=== PATIENT | female | born 1995 | race Caucasian/White ===

== ENCOUNTER 2016-12-16 19:45 | Emergency (ER) | payer OTHER ==
[~2016-12-16] VITALS: Ht 160 cm; Wt 115.7 kg
[2016-12-16 19:45] VITALS: Ht 160 cm; Wt 115.7 kg
[~2016-12-16 19:45] MED LIST: ASPI1TAB72 PO; CANA300T PO; CEPH500C2 PO; INSU100I3 SQ; INSU300I SQ; RIZA10TA24 PO
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
--- OUTSIDE RECORDS SUMMARY | 2016-12-16 19:49 | XMS REPORT | Continuity of Care Document ---
Author Author [facility] Organization [facility] Address Unknown Phone Unavailable Allergies Medications Problems Procedures Results Encounters ACCT No. Visit Date/Time Discharge Status Pt. Type Provider Facility Loc./Unit Complaint [id number] 09/07/2012 13:08:00 2012 16:48:00 DIS Emergency Bertrand HIGH, [facility] W.EDS [id number] 05/21/2012 09:32:00 2011 09:32:00 DIS Outpatient Andrea HIGH, [facility] W.KENRICK
--- OUTSIDE RECORDS SUMMARY | 2016-12-16 19:49 | XMS REPORT | Continuity of Care Document ---
Author Author [facility] Organization [facility] Address Unknown Phone Unavailable Care Team Providers Care Independent Marketing Consultant Name Role Phone GAVIN CASTELLANOS MD Primary Care Physician [phone] Insurance Providers Payer Name Policy Number Subscriber Name Relationship [employer] [id number] Pedro Grimm 19 Child Advance Directives Directive Response Recorded Date/Time Advanced Directives Type None 11/30/14 9:05pm Problems Medical Problems Problem Onset Date Status Heavy menstrual bleeding Unknown Active Diabetes type 2, uncontrolled Unknown Active Heavy menstrual bleeding Unknown Active Nausea & vomiting Unknown Active Diabetes type 2, uncontrolled Unknown Active Nausea & vomiting Unknown Active Cephalgia Unknown Active Hyperglycemia Unknown Active Medications Medication Dose Route Sig Days/Qty Instructions Order Date Discontinued Date Status [None] 05/30/09 03/04/10 Discontinued Cefuroxime Axetil TWICE A DAY 05/30/09 03/04/10 Discontinued Rizatriptan Benzoate NEEDED 03/04/10 09/16/11 Discontinued Liraglutide 1.2 Mg SQ DAILY 01/03/13 12/13/13 Discontinued Insulin Aspart 6 Unit SQ THREE TIMES DAILY WITH MEALS 11/30/14 Active Insulin Glargine,Hum.rec.anlog 20 Unit SQ BEDTIME 11/30/14 Active Hydrocodone/Acetaminophen 1 Tab PO Every 6 Hours PRN PAIN 11/30/14 Active Ibuprofen 1 Tab PO Every 6 Hours PRN PAIN 11/30/14 Active Rizatriptan Benzoate 10 Mg PO NEEDED 11/30/14 Active Social History Social History Problem Response Recorded Date/Time Hx Substance Use No 11/30/2014 9:05pm Tobacco Usage none 07/16/2014 5:38am Query Response Start Date Stop Date Smoking Status Never smoker Hospital Discharge Instructions No hospital discharge instructions. Plan of Care No plan of care. Functional Status Query Response Date Recorded Physical Hygiene Self November 30, 2014 9:05pm Disabilities Visual November 30, 2014 9:05pm Devices Used Glasses November 30, 2014 9:05pm Dressing Self November 30, 2014 9:05pm Ambulation Self November 30, 2014 9:05pm Diet Self November 30, 2014 9:05pm Mental Status Alert Oriented November 30, 2014 11:31pm Disabilities Visual November 30, 2014 9:05pm Devices Used Glasses November 30, 2014 9:05pm Physical Hygiene Self November 30, 2014 9:05pm Dressing Self November 30, 2014 9:05pm Ambulation Self November 30, 2014 9:05pm Diet Self November 30, 2014 9:05pm Allergies, Adverse Reactions, Alerts Allergen Type Severity Reaction Status Last Updated No Known Drug Allergies Allergy Unknown Active 07/16/14 Immunizations Name Given Type Hx Influenza Vaccination Y may 2014 Historical Hx Influenza Vaccination Y may 2014 Historical Vital Signs Acute Vital Signs Vital Response Date/Time Temperature (Fahrenheit) 96.7 deg F (96.8 - 99.1) Temperature (Calculated Celsius) 35.16221 degrees C (36.0 - 37.3) Pulse Rate (adult) 88 bpm (60 - 100) Respiratory Rate 16 breaths/min (10 - 20) O2 Sat by Pulse Oximetry 97 % (90 - 100) Blood Pressure 134/64 mm Hg Height 5 ft 3 in Weight 258 lb Body Mass Index 45.0 kg/m^2 Results Test Source Date Result Interp. Ref. Range Comments Acetone Level November 30, 2014 9:55pm Negative - Alanine Aminotransferase (ALT/SGPT) November 30, 2014 9:55pm 30 U/L N 9-52 Albumin November 30, 2014 9:55pm 4.4 G/DL N 3.5-5.0 Albumin/Globulin Ratio November 30, 2014 9:55pm 1.2 RATIO N 1.1-2.2 Alkaline Phosphatase November 30, 2014 9:55pm 98 U/L N 38-126 Amylase Level July 16, 2014 5:40am 52 U/L N 30-110 Anion Gap November 30, 2014 9:55pm 16 MEQ/L H 5-15 Aspartate Amino Transf (AST/SGOT) November 30, 2014 9:55pm 19 U/L N 14-36 BUN/Creatinine Ratio November 30, 2014 9:55pm 24 RATIO N 6-26 Band Neutrophils # July 16, 2014 5:40am 4.1 T/MM3 - Band Neutrophils % July 16, 2014 5:40am 29.0 % H 0-6 Basophils # (Auto) December 13, 2013 10:45pm 0.0 T/MM3 N 0-0.2 Basophils (%) (Auto) December 13, 2013 10:45pm 0.3 % N 0-2 Blood Urea Nitrogen November 30, 2014 9:55pm 12.0 MG/DL N 7-17 Calcium Level November 30, 2014 9:55pm 9.8 MG/DL N 8.4-10.2 Calculated Osmolality November 30, 2014 9:55pm 281 MOSM/KG H 261-280 Carbon Dioxide Level November 30, 2014 9:55pm 27 MEQ/L N 22-30 Chemistry Specimen Hemolysis November 30, 2014 9:55pm < 15 0-25 0-25: No Hemolysis.26-70: Slight Hemolysis - can falsely elevate K and Urine Protein. 71-285: Moderate Hemolysis - can falsely elevate K, Troponin I, CA 19-9, PTH, CSF GLucose, and Urine Protein, and can falsely decrease Phenytoin. 286-999: Gross Hemolysis - can falsely elevate K, Troponin I, CA 19-9, PTH, CSF Glucose, and Urine Protine, and can falsely decrease Phenytoin. Recommend specimen recollection. Chloride Level November 30, 2014 9:55pm 98 MEQ/L N 98-107 Creatinine November 30, 2014 9:55pm 0.5 MG/DL L 0.7-1.2 Eosinophils # (Auto) December 13, 2013 10:45pm 0.1 T/MM3 N 0-0.5 Eosinophils (%) (Auto) December 13, 2013 10:45pm 1.0 % N 0-4 Globulin November 30, 2014 9:55pm 3.8 G/DL H 2.4-3.6 Glomerular Filtration Rate Calc November 30, 2014 9:55pm 159 - Glucometer November 30, 2014 9:28pm 287 mg/dL H 65-110 Glucose Level November 30, 2014 9:55pm 281 MG/DL H 65-110 Hematocrit November 30, 2014 9:55pm 43.2 % N 36-46 Hemoglobin November 30, 2014 9:55pm 14.7 GM/DL N 12-16 Icterus Index November 30, 2014 9:55pm < 2 0-7 Immature Granulocyte # (Auto) December 13, 2013 10:45pm 0.02 T/MM3 N 0.00- 0.03 Immature Granulocyte % (Auto) December 13, 2013 10:45pm 0.2 % N 0.0-0.5 Lab Scanned Report October 16, 2011 2:14pm REFERENCE LAB [id number] - Lipase July 16, 2014 5:40am 84 U/L N 23-300 Lymphocytes # (Auto) December 13, 2013 10:45pm 3.5 T/MM3 N 1-4.8 Lymphocytes # (Manual) November 30, 2014 9:55pm 4.0 T/MM3 N 1-4.8 Lymphocytes % (Manual) November 30, 2014 9:55pm 32.0 % N 23-45 Lymphocytes (%) (Auto) December 13, 2013 10:45pm 37.5 % N 23-45 Mean Corpuscular Hemoglobin November 30, 2014 9:55pm 25.6 UUG L 26-34 Mean Corpuscular Hemoglobin Concent November 30, 2014 9:55pm 34.0 GM/DL N 31-37 Mean Corpuscular Volume November 30, 2014 9:55pm 75.1 UM3 L 80-100 Mean Platelet Volume November 30, 2014 9:55pm 9.4 UM3 N 9.4-12.4 Microcytosis November 30, 2014 9:55pm 1+ - Monocytes # (Auto) December 13, 2013 10:45pm 0.4 T/MM3 N 0-0.8 Monocytes # (Manual) November 30, 2014 9:55pm 0.2 T/MM3 N 0-0.8 Monocytes % (Manual) November 30, 2014 9:55pm 2.0 % N 0-9.0 Monocytes (%) (Auto) December 13, 2013 10:45pm 3.8 % N 0-9.0 Neutrophils # (Auto) December 13, 2013 10:45pm 5.3 T/MM3 N 1.8-7.7 Neutrophils # (Manual) November 30, 2014 9:55pm 8.2 T/MM3 H 1.8-7.7 Neutrophils % (Manual) November 30, 2014 9:55pm 66.0 % N 33-66 Neutrophils (%) (Auto) December 13, 2013 10:45pm 57.2 % N 33-66 Non-Respiratory Viral Culture October 10, 2011 6:10pm Ref lab rpt scanned - --- 10/16/11 1411 ---CUVIRN previously reported as: SEND OUT Platelet Count November 30, 2014 9:55pm 270 T/MM3 N 130-400 Potassium Level November 30, 2014 9:55pm 4.1 MEQ/L N 3.6-5 RDW Standard Deviation November 30, 2014 9:55pm 36.6 FL L 36.9-50.2 Red Blood Count November 30, 2014 9:55pm 5.75 M/MM3 H 4.00-5.20 Red Cell Morphology Comment November 30, 2014 9:55pm Abnormal - Sodium Level November 30, 2014 9:55pm 141 MEQ/L N 134-144 Total Bilirubin November 30, 2014 9:55pm 0.40 MG/DL N 0.20-1.30 Total Protein November 30, 2014 9:55pm 8.2 G/DL N 6.3-8.2 Turbidity November 30, 2014 9:55pm < 20 0-20 Urinalysis Comment November 30, 2014 10:00pm Microscopic not ind. - Has specimen been collected/obtained? Y Urine Bacteria December 13, 2013 11:10pm None seen - Has specimen been collected/obtained? Y Urine Bilirubin November 30, 2014 10:00pm Negative - Has specimen been collected/obtained? Y Urine Blood November 30, 2014 10:00pm Negative - Has specimen been collected/obtained? Y Urine Collection Type November 30, 2014 10:00pm Cleancatch-midstream - Has specimen been collected/obtained? Y Urine Color November 30, 2014 10:00pm Yellow - Has specimen been collected/obtained? Y Urine Culture Indicated January 03, 2013 2:03pm Cult reflexed &setup - Has specimen been collected/obtained? Y Urine Glucose (UA) November 30, 2014 10:00pm 2+ H - Has specimen been collected/obtained? Y Urine Ketones November 30, 2014 10:00pm Negative - Has specimen been collected/obtained? Y Urine Leukocyte Esterase November 30, 2014 10:00pm Negative - Has specimen been collected/obtained? Y Urine Nitrite November 30, 2014 10:00pm Negative - Has specimen been collected/obtained? Y Urine Protein November 30, 2014 10:00pm Negative - Has specimen been collected/obtained? Y Urine RBC December 13, 2013 11:10pm Tntc /HPF H - Has specimen been collected/obtained? Y Urine Specific [place] November 30, 2014 10:00pm >=1.030 H - Has specimen been collected/obtained? Y Urine Squamous Epithelial Cells January 03, 2013 2:03pm Few - Has specimen been collected/obtained? Y Urine Turbidity November 30, 2014 10:00pm Clear - Has specimen been collected/obtained? Y Urine Urobilinogen November 30, 2014 10:00pm 0.2 EU/DL - Has specimen been collected/obtained? Y Urine WBC December 13, 2013 11:10pm None seen /HPF - Has specimen been collected/obtained? Y Urine Yeast January 03, 2013 2:03pm Trace H - Has specimen been collected/ obtained? Y Urine pH November 30, 2014 10:00pm 5.5 - Has specimen been collected/ obtained? Y White Blood Count November 30, 2014 9:55pm 12.4 T/MM3 H 4.5-11.0 Urine Culture Urine, Clean Catch Voided January 03, 2013 2:18pm Gram Positive [place] Procedures No known history of procedures. Encounters Encounter Location Date/Time Departed Emergency Room [facility] 11/30/14 8:58pm Recent Diagnosis
--- OUTSIDE RECORDS SUMMARY | 2016-12-16 19:49 | XMS REPORT | Continuity of Care Document ---
Author Author [facility] Organization [facility] Address Unknown Phone Unavailable Care Team Providers Care Dietitian Assistant Name Role Phone GAVIN CASTELLANOS MD Primary Care Physician [phone] Insurance Providers Payer Name Policy Number Subscriber Name Relationship [employer] [id number] Pedro Jaeger 19 Child Problems Medical Problems Problem Onset Date Status Heavy menstrual bleeding Unknown Active Diabetes type 2, uncontrolled Unknown Active Heavy menstrual bleeding Unknown Active Nausea & vomiting Unknown Active Diabetes type 2, uncontrolled Unknown Active Nausea & vomiting Unknown Active Medications Medication Dose Route Sig Days/Qty Instructions Order Date Discontinued Date Status [None] 05/30/09 03/04/10 Discontinued Cefuroxime Axetil TWICE A DAY 05/30/09 03/04/10 Discontinued Rizatriptan Benzoate NEEDED 03/04/10 09/16/11 Discontinued Metformin Hcl 1,000 Mg PO TWICE A DAY 01/20/12 Active Tieraaglutide 1.2 Mg SQ DAILY 01/03/13 12/13/13 Discontinued Ondansetron 4 Mg PO Q6H/0300,0900,1500,2100 PRN NAUSEA &/OR VOMITING 6 Qty Oral disintegrating tablet 07/16/14 Active Social History Social History Problem Response Recorded Date/Time Smoking Status Never smoker 12/13/2013 11:34pm Query Response Start Date Stop Date Smoking Status Never smoker Hospital Discharge Instructions No hospital discharge instructions. Plan of Care No plan of care. Functional Status Query Response Date Recorded Physical Hygiene Self July 16, 2014 6:23am Disabilities None July 16, 2014 6:23am Devices Used None July 16, 2014 6:23am Dressing Self July 16, 2014 6:23am Ambulation Self July 16, 2014 6:23am Diet Self July 16, 2014 6:23am Mental Status Alert July 16, 2014 7:10am Disabilities None July 16, 2014 6:23am Devices Used None July 16, 2014 6:23am Physical Hygiene Self July 16, 2014 6:23am Dressing Self July 16, 2014 6:23am Ambulation Self July 16, 2014 6:23am Diet Self July 16, 2014 6:23am Allergies, Adverse Reactions, Alerts Allergen Type Severity Reaction Status Last Updated No Known Drug Allergies Allergy Unknown Active 07/16/14 Immunizations Name Given Type Hx Influenza Vaccination Y MAY 2013 Historical Hx Influenza Vaccination Y MAY 2013 Historical Vital Signs Acute Vital Signs Vital Response Date/Time Temperature (Fahrenheit) 100.9 deg F (96.8 - 99.1) Temperature (Calculated Celsius) 38.51282 degrees C (36.0 - 37.3) Pulse Rate (adult) 120 bpm (60 - 100) Respiratory Rate 18 breaths/min (10 - 20) O2 Sat by Pulse Oximetry 98 % (90 - 100) Blood Pressure 93/49 mm Hg Height 5 ft 3 in Weight 255 lb Body Mass Index 45.0 kg/m^2 Results Test Source Date Result Interp. Ref. Range Comments Acetone Level January 03, 2013 1:23pm Negative - Alanine Aminotransferase (ALT/SGPT) July 16, 2014 5:40am 42 U/L N 9- 52 Albumin July 16, 2014 5:40am 4.4 G/DL N 3.5-5.0 Albumin/Globulin Ratio July 16, 2014 5:40am 1.4 RATIO N 1.1-2.2 Alkaline Phosphatase July 16, 2014 5:40am 108 U/L N 38-126 Amylase Level July 16, 2014 5:40am 52 U/L N 30-110 Anion Gap July 16, 2014 5:40am 15 MEQ/L N 5-15 Aspartate Amino Transf (AST/SGOT) July 16, 2014 5:40am 22 U/L N 14- 36 BUN/Creatinine Ratio July 16, 2014 5:40am 32 RATIO H 6-26 Band Neutrophils # July 16, 2014 5:40am 4.1 T/MM3 - Band Neutrophils % July 16, 2014 5:40am 29.0 % H 0-6 Basophils # (Auto) December 13, 2013 10:45pm 0.0 T/MM3 N 0-0.2 Basophils (%) (Auto) December 13, 2013 10:45pm 0.3 % N 0-2 Blood Urea Nitrogen July 16, 2014 5:40am 16.0 MG/DL N 7-17 Calcium Level July 16, 2014 5:40am 9.9 MG/DL N 8.4-10.2 Calculated Osmolality July 16, 2014 5:40am 293 MOSM/KG H 261-280 Carbon Dioxide Level July 16, 2014 5:40am 29 MEQ/L N 22-30 Chloride Level July 16, 2014 5:40am 98 MEQ/L N 98-107 Creatinine July 16, 2014 5:40am 0.5 MG/DL L 0.7-1.2 Eosinophils # (Auto) December 13, 2013 10:45pm 0.1 T/MM3 N 0-0.5 Eosinophils (%) (Auto) December 13, 2013 10:45pm 1.0 % N 0-4 Globulin July 16, 2014 5:40am 3.1 G/DL N 2.4-3.6 Glucose Level July 16, 2014 5:40am 444 MG/DL H 65-110 Hematocrit July 16, 2014 5:40am 44.2 % N 36-46 Hemoglobin July 16, 2014 5:40am 15.3 GM/DL N 12-16 Lipase July 16, 2014 5:40am 84 U/L N 23-300 Lymphocytes # (Auto) December 13, 2013 10:45pm 3.5 T/MM3 N 1-4.8 Lymphocytes # (Manual) July 16, 2014 5:40am 0.4 T/MM3 L 1-4.8 Lymphocytes % (Manual) July 16, 2014 5:40am 3.0 % L 23-45 Lymphocytes (%) (Auto) December 13, 2013 10:45pm 37.5 % N 23-45 Mean Corpuscular Hemoglobin July 16, 2014 5:40am 26.0 UUG N 26-34 Mean Corpuscular Hemoglobin Concent July 16, 2014 5:40am 34.6 GM/DL N 31-37 Mean Corpuscular Volume July 16, 2014 5:40am 75.2 UM3 L 80-100 Mean Platelet Volume July 16, 2014 5:40am 9.9 UM3 N 9.4-12.4 Monocytes # (Auto) December 13, 2013 10:45pm 0.4 T/MM3 N 0-0.8 Monocytes # (Manual) July 16, 2014 5:40am 0.1 T/MM3 N 0-0.8 Monocytes % (Manual) July 16, 2014 5:40am 1.0 % N 0-9.0 Monocytes (%) (Auto) December 13, 2013 10:45pm 3.8 % N 0-9.0 Neutrophils # (Auto) December 13, 2013 10:45pm 5.3 T/MM3 N 1.8-7.7 Neutrophils # (Manual) July 16, 2014 5:40am 9.5 T/MM3 H 1.8-7.7 Neutrophils % (Manual) July 16, 2014 5:40am 67.0 % H 33-66 Neutrophils (%) (Auto) December 13, 2013 10:45pm 57.2 % N 33-66 Platelet Count July 16, 2014 5:40am 249 T/MM3 N 130-400 Potassium Level July 16, 2014 5:40am 4.4 MEQ/L N 3.6-5 RDW Standard Deviation July 16, 2014 5:40am 36.8 FL L 36.9-50.2 Red Blood Count July 16, 2014 5:40am 5.88 M/MM3 H 4.00-5.20 Sodium Level July 16, 2014 5:40am 142 MEQ/L N 134-144 Total Bilirubin July 16, 2014 5:40am 1.10 MG/DL N 0.20-1.30 Total Protein July 16, 2014 5:40am 7.5 G/DL N 6.3-8.2 Urine Bacteria December 13, 2013 11:10pm None seen - Has specimen been collected/obtained? Y Urine Bilirubin July 16, 2014 6:15am Negative - Has specimen been collected/obtained? Y Urine Blood July 16, 2014 6:15am Negative - Has specimen been collected/obtained? Y Urine Collection Type July 16, 2014 6:15am Cleancatch-midstream - Has specimen been collected/obtained? Y Urine Color July 16, 2014 6:15am Yellow - Has specimen been collected/obtained? Y Urine Culture Indicated January 03, 2013 2:03pm Cult reflexed &setup - Has specimen been collected/obtained? Y Urine Glucose (UA) July 16, 2014 6:15am 3+ H - Has specimen been collected/obtained? Y Urine Ketones July 16, 2014 6:15am 2+ H - Has specimen been collected/obtained? Y Urine Leukocyte Esterase July 16, 2014 6:15am Negative - Has specimen been collected/obtained? Y Urine Nitrite July 16, 2014 6:15am Negative - Has specimen been collected/obtained? Y Urine Protein July 16, 2014 6:15am Negative - Has specimen been collected/obtained? Y Urine RBC December 13, 2013 11:10pm Tntc /HPF H - Has specimen been collected/obtained? Y Urine Specific [place] July 16, 2014 6:15am 1.010 L - Has specimen been collected/obtained? Y Urine Squamous Epithelial Cells January 03, 2013 2:03pm Few - Has specimen been collected/obtained? Y Urine Turbidity July 16, 2014 6:15am Clear - Has specimen been collected/obtained? Y Urine Urobilinogen July 16, 2014 6:15am 0.2 EU/DL - Has specimen been collected/obtained? Y Urine WBC December 13, 2013 11:10pm None seen /HPF - Has specimen been collected/obtained? Y Urine Yeast January 03, 2013 2:03pm Trace H - Has specimen been collected/ obtained? Y Urine pH July 16, 2014 6:15am 6.0 - Has specimen been collected/ obtained? Y White Blood Count July 16, 2014 5:40am 14.2 T/MM3 H 4.5-11.0 Chemistry Specimen Hemolysis July 16, 2014 5:40am < 15 0-25 0-25 : No Hemolysis.26-70: Slight Hemolysis - can falsely elevate K and Urine Protein. 71-285: Moderate Hemolysis - can falsely elevate K, Troponin I, CA 19-9, PTH, CSF GLucose, and Urine Protein, and can falsely decrease Phenytoin. 286-999: Gross Hemolysis - can falsely elevate K, Troponin I, CA 19-9, PTH, CSF Glucose, and Urine Protine, and can falsely decrease Phenytoin. Recommend specimen recollection. Urinalysis Comment July 16, 2014 6:15am Microscopic not ind. - Has specimen been collected/obtained? Y Glucometer July 16, 2014 5:22am 378 mg/dL H 65-110 Lab Scanned Report October 16, 2011 2:14pm [facility] [id number] - Turbidity July 16, 2014 5:40am < 20 0-20 Glomerular Filtration Rate Calc July 16, 2014 5:40am 159 - Immature Granulocyte # (Auto) December 13, 2013 10:45pm 0.02 T/MM3 N 0.00- 0.03 Immature Granulocyte % (Auto) December 13, 2013 10:45pm 0.2 % N 0.0-0.5 Icterus Index July 16, 2014 5:40am < 2 0-7 Non-Respiratory Viral Culture October 10, 2011 6:10pm Ref lab rpt scanned - --- 10/16/11 1411 ---CUVIRN previously reported as: SEND OUT Urine Culture Urine, Clean Catch Voided January 03, 2013 2:18pm Gram Positive Geronimo Procedures No known history of procedures. Encounters Encounter Location Date/Time Departed Emergency Room [facility] 07/16/14 5:07am Recent Diagnosis
--- OUTSIDE RECORDS SUMMARY | 2016-12-16 19:50 | XMS REPORT | Continuity of Care Document ---
Author Author [facility] Organization [facility] Address Unknown Phone Unavailable Care Team Providers Care Marketing Officer Name Role Phone JORDEN DAMON MD Primary Care Physician [phone] Insurance Providers Guarantor Aracelis Grimm Address [address] [place] [address] Email DENIED/NO PT [facility] Policy Number [id number] Subscriber's Name Pedro Grimm Relationship 19 Child Group Number [id number] Chief Complaint and Reason for Visit Chief Complaint Skin Rash/Abscess/Injury Reason for Visit Folliculitis Problems Active Problems Medical Problem Onset Date Status Cephalgia Unknown Acute Cephalgia Unknown Acute Diabetes type 2, uncontrolled Unknown Acute Diabetes type 2, uncontrolled Unknown Acute Heavy menstrual bleeding Unknown Acute Heavy menstrual bleeding Unknown Acute Hyperglycemia Unknown Acute Low back pain Unknown Acute Migraine Unknown Acute Nausea & vomiting Unknown Acute Nausea & vomiting Unknown Acute Viral syndrome Unknown Acute Volume depletion Unknown Acute Past Problems Medical Problem Onset Date Folliculitis Unknown Laceration of foot Unknown Medications Current Home Medications Medication Dose Units Route Directions Days Qty Instructions Start Date Aspirin/Acetaminophen/Caffeine (Excedrin Extra Strength Caplet) 1 Each Tablet 2 Tab Oral As Needed 10/31/15 Canagliflozin (Invokana) 300 Mg Tablet 300 Mg Oral Daily 10/31/15 Cephalexin 500 Mg Capsule 500 Mg Oral Twice A Day 7 Days [address] Andrew Gonzalez [facility] [address] [phone] 11/11/16 Insulin Aspart (Novolog Flexpen) 1 Unit Pen 1 Dose Sub-Q Insulin Glargine,Hum.rec.anlog (Damon Toney) 300 Unit/1 Ml Insuln.pen 10/06/16 Rizatriptan Benzoate (Maxalt) 10 Mg Tablet 10 Mg Oral As Needed 11/30/14 Past Home Medications Medication Directions Ordered Status Cefuroxime Axetil (Ceftin) 500 Mg Tablet, Twice A Day 05/30/09 Discontinued Liraglutide (Victoza) 0.6 Mg/0.1 Ml Inj, 1.2 Mg Sub-Q Daily 01/03/13 Discontinued None , 05/30/09 Discontinued Rizatriptan Benzoate (Maxalt) 10 Mg Tablet, As Needed 03/04/10 Discontinued Social History Social History Problem Response Recorded Date/Time Onset Date Status Hx Substance Use No 10/31/2015 4:15pm Not Applicable Not Applicable Tobacco Usage none 07/16/2014 5:38am Not Applicable Not Applicable Query Response Start Date Stop Date Smoking Status Never smoker Hospital Discharge Instructions No hospital discharge instructions. Plan of Care Discharge Date 11/11/16 12:07pm Disposition 01 DISCHARGED HOME, SELF-CARE Condition at Discharge Stable Instructions/Education Provided Folliculitis (GEN) Prescriptions See Medication Section Referrals JORDEN DAMON MD Address: [address] [place] [address] [place] [address] Functional Status No functional status results. Allergies, Adverse Reactions, Alerts Allergen Type Severity Reaction Status Last Updated No Known Drug Allergies Allergy Unknown Active 11/11/16 Immunizations Immunization Event Date Type Not Given Reason Dose Number Lot Number Director Workers Compensation VIS Given Tdap 10/06/16 Administered 1 [id number] aiHitine 10/13/14 Query Response on File Recorded Date/Time Hx Influenza Vaccination Y may 2014 12/26/14 7:35pm Hx Influenza Vaccination Y may 2014 12/26/14 7:35pm Influenza Vaccine Hx JUN 2016 11/11/16 3:01pm Tdap Vaccine Hx [id number] 10/06/16 11:35am Vital Signs Acute Vital Signs Vital Response Date/Time Temperature (Fahrenheit) 97.2 deg F (96.8 - 99.1) 11/11/2016 2:59pm Temperature (Calculated Celsius) 36.97894 degrees C (36.0 - 37.3) 11/11/2016 2:59pm Pulse Rate (adult) 96 bpm (60 - 100) 11/11/2016 2:59pm Respiratory Rate 16 breaths/min (10 - 20) 11/11/2016 2:59pm O2 Sat by Pulse Oximetry 96 % (90 - 100) 11/11/2016 2:59pm Blood Pressure 151/98 mm Hg 11/11/2016 2:59pm Height (Inches) 63.50 inches 11/11/2016 2:59pm Weight (Kilograms) 114.900 kg 11/11/2016 2:59pm Body Mass Index (BMI) 44.0 11/11/2016 2:59pm Results No known relevant diagnostic tests, laboratory data and/or discharge summary. Procedures No known history of procedures. Encounters Encounter Location Arrival/Admit Date Discharge/Depart Date Attending Provider Departed Emergency Room [facility] 11/11/16 11:35am 11/11/16 12: 07pm BRENNA KINNEY APRN Departed Emergency Room [facility] 10/06/16 10:15am 10/06/16 11: 33am BRENNA KINNEY APRN Discharged Recurring [facility] 09/14/16 8:00am 11/01/16 11:59pm JORDEN DAMON MD Recent Diagnosis
--- NOTE | 2016-12-16 19:56 | NUR ---
IMAGING PT TO IMAGING AT THIS TIME
--- OUTSIDE RECORDS SUMMARY | 2016-12-16 19:57 | XMS REPORT | Continuity of Care Document ---
Author Author [facility] Organization [facility] Address Unknown Phone Unavailable Care Team Providers Care Machining Engineer Name Role Phone GAIVN CASTELLANOS MD Primary Care Physician [phone] Insurance Providers Payer Name Policy Number Subscriber Name Relationship [employer] [id number] Pedro Grimm 19 Child Advance Directives Directive [...] F (96.8 - 99.1) Temperature (Calculated Celsius) 35.07914 degrees C (36.0 - 37.3) Pulse Rate [...] Report October 16, 2011 2:14pm [facility] [id number] - Lipase July 16, 2014 5:40am 84 [...] Has specimen been collected/obtained? Y Urine Specific [place] November 30, 2014 10:00pm >=1.030 H - [...] Encounters Encounter Location Date/Time Departed Emergency Room [facility] 11/30/14 8:58pm Recent Diagnosis
--- OUTSIDE RECORDS SUMMARY | 2016-12-16 19:57 | XMS REPORT | Continuity of Care Document ---
Author Author [facility] Organization [facility] Address Unknown Phone Unavailable Care Team Providers Care Computer Tech Name Role Phone GAVIN CASTELLANOS MD Primary Care Physician [phone] Insurance Providers Payer Name Policy Number Subscriber Name Relationship [employer] [id number] Pedro Jaeger 19 Child Problems Medical Problems [...] F (96.8 - 99.1) Temperature (Calculated Celsius) 38.07861 degrees C (36.0 - 37.3) Pulse Rate [...] Has specimen been collected/obtained? Y Urine Specific [place] July 16, 2014 6:15am 1.010 L - [...] Report October 16, 2011 2:14pm [facility] [id number] - Turbidity July 16, 2014 5:40am < [...] Encounters Encounter Location Date/Time Departed Emergency Room [facility] 07/16/14 5:07am Recent Diagnosis
--- OUTSIDE RECORDS SUMMARY | 2016-12-16 19:57 | XMS REPORT | Continuity of Care Document ---
Author Author [facility] Organization [facility] Address Unknown Phone Unavailable Allergies Medications Problems Procedures Results Encounters ACCT No. Visit Date/Time Discharge Status Pt. Type Provider Facility Loc./Unit Complaint [id number] 09/07/2012 13:08:00 2012 16:48:00 DIS Emergency Bertrand HIGH, [facility] W.EDS [id number] 05/21/2012 09:32:00 2011 09:32:00 DIS Outpatient Andrea HIGH, [facility] W.KENRICK
[2016-12-16] MEDS ORDERED: NORMAL SALINE 1,000 ML IV ONE ×2 (20:00→21:15)
[2016-12-16 20:11] LABS: BASOPHILS % (AUTO) 0.3 % (0-2); EOSINOPHILS # (AUTO) 0.1 T/MM3 (0-0.5); EOSINOPHILS % (AUTO) 0.5 % (0-4); HCT - HEMATOCRIT 45.4 % (36-46); HGB - HEMOGLOBIN 15.7 GM/DL (12-16); IMMATURE GRANULOCYTE # (AUTO) 0.02 T/MM3 (0.00-0.03); IMMATURE GRANULOCYTE % (AUTO) 0.2 % (0.0-0.5); LYMPHOCYTES # (AUTO) 3.7 T/MM3 (1-4.8); LYMPHOCYTES % (AUTO) 33.3 % (23-45); MEAN CORPUSCULAR HGB 26.2 UUG (26-34); MEAN CORPUSCULAR HGB CONC(MCHC 34.6 GM/DL (31-37); MEAN CORPUSCULAR VOLUME 75.7 UM3 (80-100); MEAN PLATELET VOLUME 9.8 UM3 (9.4-12.4); MONOCYTES # (AUTO) 0.4 T/MM3 (0-0.8); MONOCYTES % (AUTO) 3.7 % (0-9.0); NEUTROPHILS #(AUTO)-ABSOLUTE 6.8 T/MM3 (1.8-7.7)
--- NOTE | 2016-12-16 20:12 | NUR ---
IMAGING PT RETURN FROM IMAGING AT THIS TIME.
--- NOTE | 2016-12-16 20:14 | NUR ---
LAB LAB AT BEDSIDE FOR BLOOD DRAW
[2016-12-16] MEDS ORDERED: INSULIN REGULAR 100 UNIT/ML IV ONE ×2 (20:15→21:45)
[2016-12-16] MEDS ORDERED: INSU200I SQ (20:15)
[2016-12-16 20:16] LABS: ALBUMIN 4.7 G/DL (3.5-5.0); ALBUMIN/GLOBULIN RATIO 1.4 RATIO (1.1-2.2); ALKALINE PHOSPHATASE 117 U/L (38-126); ALT (SGPT) 55 U/L (9-52); ANION GAP 17 MEQ/L (5-15); AST (SGOT) 31 U/L (14-36); BUN/CREATININE RATIO 18 RATIO (6-26); CALCIUM 10.4 MG/DL (8.4-10.2); CHLORIDE 97 MEQ/L (98-107); CO2 - CARBON DIOXIDE 26 MEQ/L (22-30); CREATININE 0.6 MG/DL (0.7-1.2); GLOMERULAR FILTRATION RATE 126; GLUCOSE 599 MG/DL (65-110); POTASSIUM 4.2 MEQ/L (3.6-5); SODIUM 140 MEQ/L (134-144); TOTAL PROTEIN 8.1 G/DL (6.3-8.2)
--- NOTE | 2016-12-16 21:08 | NUR ---
IMAGING PT TO IMAGING AT THIS TIME.
[2016-12-16] MEDS ORDERED: ORPHENADRINE 60mg/2ml INJECTION IV ONE (21:15)
[2016-12-16] MEDS ORDERED: KETOROLAC 30mg/ml INJECTION IV ONE (21:15)
[2016-12-16 21:24] LABS: BLOOD, URINE NEGATIVE (NEGATIVE); COLOR,URINE YELLOW (YELLOW); LEUKOCYTE ESTERASE ,URINE NEGATIVE (NEGATIVE); NITRITE,URINE NEGATIVE (NEGATIVE); UROBILINOGEN,URINE 0.2 EU/DL (NORMAL)
--- NOTE | 2016-12-16 21:28 | NUR ---
IMAGING PT RETURN TO ROOM FROM IMAGING AT THIS TIME.
[2016-12-16] MEDS ORDERED: BACL20TA PO (21:50)
[2016-12-16 22:04] VITALS: BP 142/87; PULSE 87; RESP 16; TEMP 98.2; O2SAT 98
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
== END 2016-12-16 22:04 | disposition home or self-care (01) ==
LOC: ED 19:45
DX: M54.2 Cervicalgia (principal); R51 Headache; M54.89 Other dorsalgia; M25.562 Pain in left knee; M25.561 Pain in right knee; E11.65 Type 2 diabetes mellitus with hyperglycemia; Z79.4 Long term (current) use of insulin; V49.9XXA Car occupant (driver) (passenger) injured in unspecified traffic accident, initial encounter; Y93.89 Activity, other specified; Y92.410 Unspecified street and highway as the place of occurrence of the external cause; Y99.8 Other external cause status
CPT/HCPCS: 70450; 72072; 72100; 72125; 80053; 81003; 82948; 84703; 85025; 96361; 96374; 96375; 96376; 99284; J1815; J1885; J2360; J7030

== ENCOUNTER 2017-08-05 10:33 | Observation (INO) ==
[2017-08-05] MEDS ORDERED: ONDANSETRON 4 MG/2 ML INJECTION IVP ONE ×2 (10:50→12:33)
[2017-08-05] MEDS ORDERED: NS 1,000 ML IV ONE ×2 (10:50→12:06)
--- NOTE | 2017-08-05 10:56 | Emergency Department Report ---
Nausea/Vomiting/Diarrhea HPI - General Chief complaint: Nausea/Vomiting/Diarrhea Stated complaint: Vomiting, Shaky, diabetic Time Seen by Provider: 08/05/17 10:37 Source: patient Mode of arrival: ambulatory Limitations: no limitations - History of Present Illness HPI Narrative: Pt presents with vomiting and diarrhea. Vomiting started about 0830 this am and diarrhea started shortly after. Pt reports she was not feeling well yesterday and did not take her insulin as she did not eat anything. She has had recent sick contacts. MD complaint: nausea, vomiting, diarrhea Onset (ago): hour(s) Description of Vomiting: watery Description of Diarrhea: water Relieving factors: none Exacerbating factors: eating Context: sick contacts Associated symptoms: denies other symptoms - Related Data Home Medications Medication Instructions Recorded Confirmed Toujeo Solostar (insulin glargine) 20 unit SQ HS 01/24/17 08/05/17 300 unit/mL (1.5 mL) SQ PEN canagliflozin 300 mg tablet 300 mg PO QAM 01/24/17 08/05/17 rizatriptan 10 mg tablet 10 mg PO PRN tab 01/24/17 08/05/17 Insulin Lispro [Humalog Kwikpen 6 units SQ TIDWM 04/24/17 08/05/17 U-100] Escitalopram [Lexapro] 10 mg PO DAILY 08/05/17 08/05/17 Allergies Allergy/AdvReac Type Severity Reaction Status Date / Time No Known Drug Allergies Allergy Unknown Verified 08/05/17 10:50 Review of Systems All systems: reviewed and negative except as stated Constitutional: Reports: as per HPI Gastrointestinal: Reports: as per HPI Endocrine: Reports: as per HPI [facility] Patient Stated Medical History Other HEENT Yes: WEARS GLASSES Diabetes Mellitus Type 2 Yes Depression Yes Now No Clinic Medical History Diabetes mellitus type 2, uncontrolled, without complications (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) Morbid obesity with BMI of 40.0-44.9, adult (Chronic Medical) - Social History Smoking status: Never smoker Physical Exam - Limitations Limitations: no limitations - General General appearance: alert, in no apparent distress - Normal Exams: Head:: Normocephalic without trauma Eyes:: Pupils are PERRLA w/ EOMI Neck:: Full range of motion, without adenopathy Chest/Respirations:: Clear all fuentes, with good airflow, and symmetry bilaterally Cardiovascular:: Regular rate and rhythm, without murmur or gallop Abdomen:: Bowel sounds positive, soft, non-tender, non-distended Musculoskeletal:: No tenderness, or deformity noted, good range of motion, all extremities Integumentary:: No rashes Neurological:: Patient is alert, and oriented, cranial nerves, motor/sensory/ cerebellar, exams w/o gross deficits, to observation Psychiatric:: Patient exhibits, appropriate attention, emotion and affect Course Vital Signs Temperature 98.6 F 08/05/17 10:38 Pulse Rate 140 H 08/05/17 10:38 Respiratory Rate 20 08/05/17 10:38 Blood Pressure 146/84 H 08/05/17 10:38 Pulse Oximetry 96 08/05/17 10:38 Temperature 98.6 F 08/05/17 10:38 Pulse Rate 124 H 08/05/17 12:30 Respiratory Rate 20 08/05/17 10:38 Blood Pressure 131/58 08/05/17 12:30 Pulse Oximetry 96 08/05/17 12:30 Nausea/Vomiting/Diarrhea - MDM Narrative Medical decision making narrative: Pt given 4 of Zofran and a liter of NS and states she is feeling much better, as fluids infused pt had another round of emesis received a second dose of Zofran and vomited 2 more times. Pt had an additional liter of NS and received 5 units of regular dropping her BG to 329. Dr Beard notified, pt to be admitted observation. Compazine given with some relief as second Zofran was ineffective at controlling N/V. - Differential Diagnosis Likely: traveler's diarrhea, gastroenteritis, clostridium difficile infection, dehydration (hyerglycemia) - Lab Data Attestation: I reviewed the patient's lab results. Result diagrams: 08/05/17 11:11 08/05/17 11:11 Lab Results 08/05/17 08/05/17 08/05/17 Range/Units 11:11 11:11 12:09 WBC 13.8 H (4.5-11.0) T/MM3 RBC 6.49 H (4.00-5.20) M/MM3 Hgb 17.1 H (12-16) GM/DL Hct 49.2 H (36-46) % MCV 75.8 L (80-100) UM3 MCH 26.3 (26-34) UUG MCHC 34.8 (31-37) GM/DL RDW Std Deviation 38.2 (36.9-50.2) FL Plt Count 264 (130-400) T/MM3 MPV 9.6 (9.4-12.4) UM3 Immature Gran % (Auto) Not performed Neut % (Auto) Not performed Lymph % (Auto) Not performed [place] % (Auto) Not performed Eos % (Auto) Not performed Baso % (Auto) Not performed Neut # (Auto) Not performed Lymph # (Auto) Not performed [place] # (Auto) Not performed Eos # (Auto) Not performed Baso # (Auto) Not performed Abs Immat Gran (auto) Not performed Neutrophils % (Manual) 82.0 H (33-66) % Band Neutrophils % 8.0 H (0-6) % Lymphocytes % (Manual) 6.0 L (23-45) % Reactive Lymphs % 1.0 H (0-0) % Monocytes % (Manual) 3.0 (0-9.0) % Neutrophils # (Manual) 11.3 H (1.8-7.7) T/MM3 Band Neutrophils # 1.1 T/MM3 Lymphocytes # (Manual) 0.8 L (1-4.8) T/MM3 Abs React Lymphs (Man) 0.1 H (0-0) T/MM3 Monocytes # (Manual) 0.4 (0-0.8) T/MM3 Anisocytosis 1+ Microcytosis 1+ RBC Morph Comment Abnormal Turbidity < 20 (0-20) Sodium 141 (134-144) MEQ/L Potassium 4.3 (3.6-5) MEQ/L Chloride 103 (98-107) MEQ/L Carbon Dioxide 24 (22-30) MEQ/L Anion Gap 14 (5-15) MEQ/L BUN 11.0 (7-17) MG/DL Creatinine 0.5 L (0.7-1.2) MG/DL GFR Calculation 154 BUN/Creatinine Ratio 22 (6-26) RATIO Glucose 461 H (65-110) MG/DL Calculated Osmolality 290 H (261-280) MOSM/KG Calcium 9.6 (8.4-10.2) MG/DL Total Bilirubin 1.10 (0.20-1.30) MG/DL Icterus Index < 2 (0-7) AST 35 (14-36) U/L ALT 52 (9-52) U/L Alkaline Phosphatase 121 (38-126) U/L Total Protein 8.6 H (6.3-8.2) G/DL Albumin 4.8 (3.5-5.0) G/DL Globulin 3.8 H (2.4-3.6) G/DL Albumin/Globulin Ratio 1.3 (1.1-2.2) RATIO Specimen Hemolysis < 15 (0-25) Ur Collection Type Urine, clean catch Urine Color Yellow (YELLOW) Urine Clarity Clear Urine pH 5.5 (5.0-8.0) Ur Specific [place] 1.015 (1.015-1.025) Urine Protein 2+ A (NEGATIVE) Urine Glucose (UA) 3+ A (NEGATIVE) Urine Ketones 1+ A (NEGATIVE) Urine Occult Blood Negative (NEGATIVE) Urine Nitrate Negative (NEGATIVE) Urine Bilirubin Negative (NEGATIVE) Urine Urobilinogen 0.2 (NORMAL) EU/DL Ur Leukocyte Esterase Negative (NEGATIVE) Urine RBC None seen (0-3) /HPF Urine WBC None seen (0-5) /HPF Ur Squamous Epith Cells 5-10 Urine Bacteria Trace H (NEGATIVE) Urine Yeast Budding present A (NEGATIVE) Ur Culture Indicated? Cult not indicated Disposition Clinical Impression: Gastroenteritis, Hyperglycemia Disposition: 02 To [facility] Acute Care Condition: Improved Prescriptions: No Action Insulin Lispro [Humalog Kwikpen U-100] 6 units SQ TIDWM Escitalopram [Lexapro] 10 mg PO DAILY rizatriptan 10 mg tablet 10 mg PO PRN tab canagliflozin 300 mg tablet 300 mg PO QAM Toujeo Solostar (insulin glargine) 300 unit/mL (1.5 mL) SQ PEN 20 unit SQ HS Referrals: Albina Zelaya MD [Family Provider] - Time of Disposition: 14:35 - Seen By: midlevel
[2017-08-05] MEDS: SALINE FLUSH 10ml SYRINGE IVF PRN ×3 (11:10→14:07)
[2017-08-05] MEDS ORDERED: NS 1,000 ML IV SCH ×2 (12:00→14:30)
[2017-08-05] MEDS ORDERED: INSULIN ASPART 100unit/ml INJECTION SQ SCH (13:00)
[2017-08-05] MEDS ORDERED: INSULIN REGULAR, HUMAN 100 UNIT/ML INJECTION IVP ONE (13:10)
[2017-08-05] MEDS ORDERED: PROCHLORPERAZINE 10 MG/2 ML INJECTION IVP ONE (13:57)
--- NOTE | 2017-08-05 14:43 | History & Physical Report ---
History of Present Illness Date: 08/05/17 Chief complaint: nausea and vomiting HPI: Patient is a 22 yo Type 2 DM female who presents to ER with nausea and vomiting. States she wasn't hungry yesterday so she didn't take her insulin all day. She currently does not have a glucometer so does not check her blood sugars. Overnight she started having a stomachache and this morning she started vomiting around 8 AM. She's had 2 bouts of diarrhea. No blood in her emesis or stool. She has been around her cousins kids who reportedly sick with stomach flu. She's had 2 L of fluid in the emergency room, 2 doses of Zofran and a dose of Compazine. After the first dose of Zofran she had some temporary relief of the nausea. A second dose of Zofran did not help following return of nausea, thus she was given Compazine. At this time, she states she has no further nausea , she is just tired. Review of Systems All systems PM: 10-point ROS was reviewed, no additional remarkable complaints except Review of systems: Fatigue. Previous nausea, vomiting, diarrhea not present at the moment. 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 (Patient with PCOS - irregular periods when not on OC's). Using condoms for control. Surgical History: Tonsillectomy as a child, brain tumor removal at age 12 (2007) -Dr. Correa. Had one year chemotherapy and 6 weeks of radiation (Dr. 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 Albina Zelaya Medications Home Medications Medication Instructions Recorded Confirmed Type Toujose juano Solostar (insulin glargine) 20 unit SQ HS 01/24/17 08/05/17 History 300 unit/mL (1.5 mL) SQ PEN canagliflozin 300 mg tablet 300 mg PO QAM 01/24/17 08/05/17 History rizatriptan 10 mg tablet 10 mg PO PRN tab 01/24/17 08/05/17 History Insulin Lispro [Humalog Kwikpen 6 units SQ TIDWM 04/24/17 08/05/17 History U-100] Escitalopram [Lexapro] 10 mg PO DAILY 08/05/17 08/05/17 History Allergies Allergy/AdvReac Type Severity Reaction Status Date / Time No Known Drug Allergies Allergy Unknown Verified 08/05/17 10:50 Exam Vital Signs: Temperature 98.6 F 08/05/17 10:38 Pulse Rate 124 H 08/05/17 12:30 Respiratory Rate 20 08/05/17 10:38 Blood Pressure 131/58 08/05/17 12:30 Pulse Oximetry 96 08/05/17 12:30 - Constitutional Present: no acute distress, well nourished, well developed, obese - Routine HEENT Exam Head: Present: normocephalic, atraumatic Eye: Present: EOMI, PERRL ENT: Present: oropharynx clear, dentition normal - Routine Neck Exam Present: supple. Absent: lymphadenopathy, thyromegaly - Routine Respiratory Exam Present: CTA bilaterally. Absent: wheezes - Routine Cardiovascular Exam Present: tachycardia. Absent: murmur - Routine Abdominal Exam Present: soft, normoactive bowel sounds, tenderness (mild epigastric), non distended - Routine Extremities Exam Present: no edema, normal capillary refill - Routine Skin Exam Present: dry, warm - Routine Neurological Exam Present: alert, oriented X3, CN II-XII intact - Routine Psychiatric Exam Present: normal affect, cooperative Results - Labs CBC & Chem 7: 08/05/17 11:11 08/05/17 11:11 Labs: Laboratory Tests 08/05/17 11:11 Neutrophils % (Manual) 82.0 H Band Neutrophils % 8.0 H Urinalysis 08/05/17 12:09 Ur Collection Type Urine, clean catch Urine Color Yellow Urine Clarity Clear Urine pH 5.5 Ur Specific [place] 1.015 Urine Protein 2+ A Urine Glucose (UA) 3+ A Urine Ketones 1+ A Urine Occult Blood Negative Urine Nitrate Negative Urine Bilirubin Negative Urine Urobilinogen 0.2 Ur Leukocyte Esterase Negative Urine RBC None seen Urine WBC None seen Ur Squamous Epith Cells 5-10 Urine Bacteria Trace H Urine Yeast Budding present A Laboratory Tests 08/05/17 11:09 Hemoglobin A1c 12.6 H Assessment and Plan Assessment and Plan: Assessment: Nausea/vomiting/diarrhea - suspect gastroenteritis Tachycardia - POA Leukocytosis - POA Type 2 DM - insulin requiring PCOS Morbid obesity Plan: Admit to observation under the hospitalist service (Dr Collado, attending) for IVF's, control of hyperglycemia and symptom control. SCD's for VTE prophylaxis. Patient has had 2 L of NS in ER. Will continue her at 150cc's/hr. Zofran prn nausea. Accuchecks, sliding scale insulin and clear liquids as tolerated. Will resume scheduled insulin when she is keeping food down. CBC and BMP in am to follow blood counts, electrolytes and renal function. Patient wishes to be a full code. Care to return to Dr. Zelaya on dismissal. DVT Prophylaxis: SCD's GI Prophylaxis: Protonix Resuscitation Status: Full Code - Physician Narrative Physician: Gustavo Collado MD Narrative: Date: 08/05/17 Time: 1439 Have independently interviewed and examined pt. Chart reviewed. Case discussed with ED provider and my PA. Care plan developed with my supervision; agree with above. Presents to ED secondary to secondary to intractable nausea/vomiting and loose stool. Noted appetite decreased some yesterday, but nothing significant. This am , woke with n/a. Hard to keep liquids in. Not feeling hungry or wanting to eat. Reports pain to ab, but feel it is from the retching. 2 loose stool today. Bowel previously had been 'normal' for her. Was around her cousin's boys who had bag gut bug. Breathing well-no cough or congestion. With persistence of symptoms, presents to ED for evaluation. Despite multiple rounds of antiemetics and 2L IVF, symptoms persisted. Placed in OBD for supportive treatment. CV: tachy, regular Lungs: clear bilaterally Ab: soft nt/nd BS decreased MSE: awake alert appropriate Plan: OBS for hydration. IVF for hydration. Control nausea. Monitor sugars. Continue home insulin. SCD for DVT prevention. Monitor lab. Hospital Course Summary Disclaimer: The visit summary below is not to be considered part of the above Progress Note. Hospital Course: Assessment: Nausea/vomiting/diarrhea - suspect gastroenteritis Tachycardia - POA Leukocytosis - POA Type 2 DM - insulin requiring PCOS Morbid obesity 12/17/17 - Hospital admission for observation Admit to observation under the hospitalist service (Dr Collado, attending) for IVF's, control of hyperglycemia and symptom control. SCD's for VTE prophylaxis. Patient has had 2 L of NS in ER. Will continue her at 150cc's/hr. Zofran prn nausea. Accuchecks, sliding scale insulin and clear liquids as tolerated. Will resume scheduled insulin when she is keeping food down. CBC and BMP in am to follow blood counts, electrolytes and renal function. Patient wishes to be a full code. Case discussed with Dr. Collado. Care to return to Dr. Zelaya on dismissal.
[2017-08-05] MEDS ORDERED: GLUCOSE ORAL GEL 40% 37.5gm PO PRN (14:55)
[2017-08-05] MEDS ORDERED: ONDANSETRON 4 MG/2 ML INJECTION IVP PRN (14:55)
[2017-08-05] MEDS: NS 1,000 ML IV SCH ×2 (15:11→21:32)
[2017-08-05 15:14] VITALS: BMI 43.9
[2017-08-05] MEDS ORDERED: INSULIN LISPRO 6 UNIT SQ SCH (17:30)
[2017-08-05] MEDS: INSULIN REGULAR, HUMAN 100 UNIT/ML INJECTION SQ PRN (20:03)
[2017-08-06] MEDS: NS 1,000 ML IV SCH (04:44)
[2017-08-06] MEDS: INSULIN REGULAR, HUMAN 100 UNIT/ML INJECTION SQ PRN ×2 (05:52→11:22)
[2017-08-06] MEDS ORDERED: CANAGLIFLOZIN 100mg TABLET PO SCH (07:30)
[2017-08-06] MEDS ORDERED: INSULIN ASPART 100unit/ml INJECTION SQ SCH (08:00)
[2017-08-06 08:06] VITALS: BP 141/79; TEMP 98.2
[2017-08-06] MEDS ORDERED: ESCITALOPRAM 10 MG TABLET PO SCH (09:00)
[2017-08-06] MEDS ORDERED: CANAGLIFLOZIN 300 MG PO SCH (09:00)
--- NOTE | 2017-08-06 10:11 | Progress Note ---
- Date 08/06/17 Subjective: F/U: Nausea/Vomiting/Diarrhea, Type II DM Doing much better this morning. Nausea decreasing-able to keep liquids in. Did need antiemetics this am. Some loose stool, but not overtly frequent and urgent. Urinating well. Ambulating well-not feeling dizzy or unsteady when up. Breathing stable. Feeling much better in general. Objective Vital signs: Temperature 98.2 F 08/06/17 08:05 Pulse Rate 105 H 08/06/17 09:29 Respiratory Rate 20 08/06/17 08:05 Blood Pressure 141/79 H 08/06/17 08:05 Pulse Oximetry 96 08/06/17 08:05 Height/Weight/BMI: Height 1.6 m Weight 115.5 kg Body Mass Index 43.9 - Constitutional Present: no acute distress, well nourished, morbidly obese, cooperative - Routine HEENT Exam Head: Present: normocephalic, atraumatic Eye: Present: EOMI, PERRL ENT: Present: mucous membranes moist, oropharynx clear, dentition normal - Routine Respiratory Exam Present: CTA bilaterally. Absent: rales, respiratory distress, rhonchi, stridor , wheezes, crackles - Routine Cardiovascular Exam Present: RRR, no murmur - Routine Abdominal Exam Present: soft, normoactive bowel sounds, non distended, non tender. Absent: guarding - Routine Extremities Exam Present: no edema, pulses intact. Absent: cyanosis, clubbing - Routine Musculoskeletal Exam Musculoskeletal: Present: no clubbing or cyanosis, normal strength - Routine Skin Exam Present: intact, dry, warm - Routine Neurological Exam Present: alert, oriented X3, CN II-XII intact, moving all extremities, vision grossly intact, hearing grossly intact, normal speech. Absent: motor deficit, altered mental status - Routine Psychiatric Exam Present: normal affect, normal thought process, cooperative, good insight, good judgment Results - Labs CBC & Chem 7: 08/06/17 04:30 08/06/17 04:30 Assessment and Plan Assessment and Plan: Assessment Nausea/vomiting/diarrhea - suspect gastroenteritis Tachycardia - POA Leukocytosis - POA Type 2 DM - insulin requiring PCOS Morbid obesity with BMI 45.1 Plan With significant clinical improvement, will discharge to home. Recommend bland diet, increasing as able. Plenty of fluids. May use Zofran as needed for nausea. Increase activities as able - return to work on 08/08/17. F/U with Dr Zelaya in 1 week. See orders for details. Case discussed with patient and her mother. Time spent with patient care and discharge greater than 30 minutes. DVT Prophylaxis: SCD's Resuscitation Status: Full Code - Physician Narrative Physician: Gustavo Collado MD Narrative: Date: 08/06/17 Time: 1003 Hospital Course Summary Disclaimer: The visit summary below is not to be considered part of the above Progress Note. Hospital Course: Assessment: Nausea/vomiting/diarrhea - suspect gastroenteritis Tachycardia - POA Leukocytosis - POA Type 2 DM - insulin requiring PCOS Morbid obesity 08/05/17 - Hospital admission for observation Admit to observation under the hospitalist service (Dr Collado, attending) for IVF's, control of hyperglycemia and symptom control. SCD's for VTE prophylaxis. Patient has had 2 L of NS in ER. Will continue her at 150cc's/hr. Zofran prn nausea. Accuchecks, sliding scale insulin and clear liquids as tolerated. Will resume scheduled insulin when she is keeping food down. CBC and BMP in am to follow blood counts, electrolytes and renal function. Patient wishes to be a full code. Case discussed with Dr. Collado. Care to return to Dr. Zelaya on dismissal. 08/06/17 With significant clinical improvement, will discharge to home. Recommend bland diet, increasing as able. Plenty of fluids. May use Zofran as needed for nausea. Increase activities as able - return to work on 08/08/17. F/U with Dr Zelaya in 1 week. See orders for details.
--- NOTE | 2017-08-06 10:15 | Work/School Release ---
Work/School Release - Date Date: 08/06/17 - Work Release Remain off work/school for:: Aracelis Grimm was hospitalized at [facility] from 08/05/17 until 08/06. She may return to work on Sunday08/08/17.
[2017-08-06 10:37] VITALS: PULSE 90; RESP 12; O2SAT 95
--- NOTE | 2017-08-06 10:37 | Discharge Summary ---
Discharge Information Date of admission: 08/05/17 14:27 Anticipated date of discharge: 08/06/17 Attending Physician: Gustavo Collado MD Primary care physician: Albina Zelaya MD Discharge diagnosis Nausea/vomiting/diarrhea - suspect gastroenteritis Associated conditions and complications Tachycardia - POA Leukocytosis - POA Type 2 DM - insulin requiring PCOS Morbid obesity with BMI 45.1 - Laboratory Labs: Admit Lab 08/05/17 11:11 WBC 13.8 H Hgb 17.1 H Hct 49.2 H MCV 75.8 L Plt Count 264 Neutrophils % (Manual) 82.0 H Band Neutrophils % 8.0 H Lymphocytes % (Manual) 6.0 L Reactive Lymphs % 1.0 H Monocytes % (Manual) 3.0 Admit Lab 08/05/17 08/05/17 11:09 11:11 Sodium 141 Potassium 4.3 Chloride 103 Carbon Dioxide 24 Anion Gap 14 BUN 11.0 Creatinine 0.5 L GFR Calculation 154 Glucose 461 H Hemoglobin A1c 12.6 H Calculated Osmolality 290 H Calcium 9.6 Total Bilirubin 1.10 AST 35 ALT 52 Alkaline Phosphatase 121 Total Protein 8.6 H Albumin 4.8 Globulin 3.8 H Albumin/Globulin Ratio 1.3 08/06/17 04:30 08/06/17 04:30 History of Present Illness HPI: Patient is a 22 yo Type 2 DM female who presents to ER with nausea and vomiting. States she wasn't hungry yesterday so she didn't take her insulin all day. She currently does not have a glucometer so does not check her blood sugars. Overnight she started having a stomachache and this morning she started vomiting around 8 AM. She's had 2 bouts of diarrhea. No blood in her emesis or stool. She has been around her cousins kids who reportedly sick with stomach flu. She's had 2 L of fluid in the emergency room, 2 doses of Zofran and a dose of Compazine. After the first dose of Zofran she had some temporary relief of the nausea. A second dose of Zofran did not help following return of nausea, thus she was given Compazine. At this time, she states she has no further nausea , she is just tired. For complete details of the H&P refer to that document. Objective Vital signs: Temperature 98.2 F 08/06/17 08:05 Pulse Rate 105 H 12/18/17 09:29 Respiratory Rate 20 08/06/17 08:05 Blood Pressure 141/79 H 08/06/17 08:05 Pulse Oximetry 96 08/06/17 08:05 Height/Weight/BMI: Height 1.6 m Weight 115.5 kg Body Mass Index 43.9 Hospital Course This is a general summary of the patient's hospital course. For more details refer to the complete medical record. Hospital course: Assessment: Nausea/vomiting/diarrhea - suspect gastroenteritis Tachycardia - POA Leukocytosis - POA Type 2 DM - insulin requiring PCOS Morbid obesity 08/05/17 - Hospital admission for observation Admit to observation under the hospitalist service (Dr Collado, attending) for IVF's, control of hyperglycemia and symptom control. SCD's for VTE prophylaxis. Patient has had 2 L of NS in ER. Will continue her at 150cc's/hr. Zofran prn nausea. Accuchecks, sliding scale insulin and clear liquids as tolerated. Will resume scheduled insulin when she is keeping food down. CBC and BMP in am to follow blood counts, electrolytes and renal function. Patient wishes to be a full code. Case discussed with Dr. Collado. Care to return to Dr. Zelaya on dismissal. 08/06/17 With significant clinical improvement, will discharge to home. Recommend bland diet, increasing as able. Plenty of fluids. May use Zofran as needed for nausea. Increase activities as able - return to work on 08/08/17. F/U with Dr Zelaya in 1 week. See orders for details. Time spent with patient: discharge greater than 30 minutes DVT Prophylaxis: SCD's Discharge Plan - Discharge Disposition Discharge Date: 08/06/17 Disposition: 01 Discharged Home, Self-Care *Condition: Improved Reason For Visit (Visit label in EMR): nausea//vomiting - Discharge Medications *Discharge Medications: New Ondansetron HCl 4 mg PO Q4HR PRN #20 tab PRN Reason: Nausea Continue Insulin Lispro [Humalog Kwikpen U-100] 6 units SQ TIDWM Escitalopram [Lexapro] 10 mg PO DAILY rizatriptan 10 mg tablet 10 mg PO PRN tab canagliflozin 300 mg tablet 300 mg PO QAM Toujeo Solostar (insulin glargine) 300 unit/mL (1.5 mL) SQ PEN 20 unit SQ HS - Discharge Packet/Instructions *Diet: [place] diet, plenty of fluids; increase as able to 2000 KCAL ADA diet. *Activity: As tolerated; may return to work on 08/08/17. *Pain Management/Treatment: Tylenol as needed. *Wound Care: N/A *Expected Signs/Symptoms: Decreased nausea and improvement of appetite. *Notify Physician if: Temp greater than 100.4. Intractable nausea or vomiting. *During Business Hours Contact: Dr Zelaya *After Business Hours Contact: Call [facility] and have Dr Zelaya or her covering provider notified. *Pending Lab/Results: No Pending Lab - Referrals/Follow Up *Referrals/Follow Up: Albina Zelaya MD [Family Provider] - 1 Week (Hospital follow up for nausea/ vomiting. ) - Patient Handouts Patient Handouts: Acute Nausea and Vomiting (GEN) Physician Narrative - Narrative Physician: Gustavo Collado MD Attestation Narrative: Date: 08/06/17 Time: 1033 I have independently interviewed and examined patient prior to discharge. See my progress note from today for details. Medically stable for discharge to home.
[2017-08-06] MEDS ORDERED: INSULIN GLARGINE 100unit/ml INJECTION SQ SCH (21:00)
== END 2017-08-06 11:25 | disposition home or self-care (01) ==
LOC: ED 10:33 → MED 10:33
PROVIDERS: ADMIT Hospitalist; ATTEND Hospitalist